=== PATIENT | male | born 1960 | race Caucasian/White ===

== ENCOUNTER 2018-07-17 20:41 | Inpatient (IN) | payer OTHER ==
[~2018-07-17] VITALS: Ht 170.2 cm; Wt 67.8 kg
[2018-07-17 21:10] VITALS: BP 103/76
[2018-07-17 21:15] LABS: BASOPHILS 0.7 % (0.0-2.0); EOSINOPHILS 3.7 % (0.0-3.0); HEMATOCRIT 39.4 % (42.0-52.0); HEMOGLOBIN 12.8 gm/dL (14.0-18.0); MCH 27.4 pg (26.0-34.0); MCHC 32.4 g/dL (28.0-37.0); MCV 84.6 fL (80.0-100.0); MONOCYTES 5.5 % (1.0-8.0); PLATELET COUNT 286 thou/uL (150-400); POLYS 52.1 % (36.0-66.0); RBC 4.66 mil/uL (4.50-6.00); RDW 16.6 % (10.5-14.5); WBC 5.8 thou/uL (4.0-11.0)
[2018-07-17 21:27] LABS: ANION GAP 10 mmol/L (7-16); BUN 7 mg/dL (7-18); CALCIUM 8.5 mg/dL (8.5-10.1); CHLORIDE 105 mmol/L (98-107); CO2 23 mmol/L (21-32); GLUCOSE 106 mg/dL (74-106); POTASSIUM 4.2 mmol/L (3.5-5.1); SODIUM 138 mmol/L (136-145)
[2018-07-17 21:28] LABS: URINE BILIRUBIN NEGATIVE (Negative); URINE BLOOD NEGATIVE (Negative); URINE CLARITY CLEAR; URINE COLOR YELLOW; URINE GLUCOSE-RANDOM* NEGATIVE (Negative); URINE KETONES NEGATIVE (Negative); URINE LEUKOCYTES-REFLEX NEGATIVE (Negative); URINE NITRITE-REFLEX NEGATIVE (Negative); URINE PROTEIN (DIPSTICK) NEGATIVE (Negative); URINE SPECIFIC GRAVITY <= 1.005 (1.005-1.035); URINE UROBILINOGEN 0.2 E.U./dl (0.2-1.0)
[2018-07-17 21:35] LABS: AMP/METHAMP Negative (Negative); BARBITURATES Negative (Negative); BENZODIAZEPINES Negative (Negative); COCAINE Negative (Negative); METHADONE Negative (Negative); OPIATES Negative (Negative); PCP Negative (Negative)
[2018-07-17 21:38] LABS: ALBUMIN 3.3 g/dL (3.4-5.0); MAGNESIUM 1.7 mg/dL (1.8-2.4); SGOT 24 U/L (15-37); SGPT 22 U/L (30-65); TOTAL BILIRUBIN 0.2 mg/dL (<0.1-1.0); TOTAL PROTEIN 7.1 g/dL (6.4-8.2); TROPONIN-I <0.06 ng/mL (<0.06)
[2018-07-17] MEDS ORDERED: LIPITOR80 MG PO (23:02)
[2018-07-17] MEDS ORDERED: BUSPIRONE HCL10 MG PO (23:02)
[2018-07-17] MEDS ORDERED: CAL-GEST200 MG PO (23:03)
[2018-07-17] MEDS ORDERED: B12INJ IM (23:06)
[2018-07-17] MEDS ORDERED: DULERA 100 MCG/13 GM SWISH&SPIT (23:08)
[2018-07-17] MEDS ORDERED: CYMBALTA60 MG PO (23:09)
[2018-07-17] MEDS ORDERED: NEURONTIN 400400 M1 PO (23:09)
[2018-07-17] MEDS ORDERED: LOPRESSOR50 PO (23:09)
[2018-07-17] MEDS ORDERED: OMEPRAZOLE 20 M20 M1 PO (23:10)
[2018-07-17] MEDS ORDERED: REMERON15 MG PO (23:10)
[2018-07-17] MEDS ORDERED: MIRALAX17 GM PO (23:11)
[2018-07-17] MEDS ORDERED: PRAZOSIN 1 MG CA1 M1 PO (23:11)
[2018-07-17] MEDS ORDERED: SPIRIVA INH (23:12)
[2018-07-17] MEDS ORDERED: FLOMAX0.4 MG PO (23:12)
[2018-07-17] MEDS ORDERED: SEROQUEL XR 30300 M1 PO (23:12)
[2018-07-17] MEDS ORDERED: TRAZODONE HCL100 MG PO (23:13)
[2018-07-18] VITALS (7 sets, daily range): BP systolic 121–162; BP diastolic 80–115
[2018-07-18 02:49] LABS: PHOSPHORUS 3.5 mg/dL (2.5-4.9)
[2018-07-18 04:49] LABS: FOLIC ACID 99.1 ng/mL (8.6-58.9)
--- NOTE | 2018-07-18 17:46 | NUR ---
ASSUMED PATIENT CARE AT 0700. A/O X4. CIW X0. DENIES CHEST PAIN. NO SOB. PATIENT HR KEEP AT 140 TO 148/M. BP HIGH. VILLEGAS SEE PATIENT AND AWARE A FIB/ AFLUTTER ON MONITOR. PATIENT IS ASYMPTOMATIC. PUT 1L/NC 02 ON. WILL KEEP MONITOR.
[2018-07-19] VITALS (8 sets, daily range): BP systolic 101–133; BP diastolic 62–91
[2018-07-19 06:40] LABS: HEMATOCRIT 36.4 % (42.0-52.0); HEMOGLOBIN 11.8 gm/dL (14.0-18.0); MCH 27.5 pg (26.0-34.0); MCHC 32.5 g/dL (28.0-37.0); MCV 84.8 fL (80.0-100.0); RBC 4.3 mil/uL (4.50-6.00); RDW 16.9 % (10.5-14.5); WBC 6.8 thou/uL (4.0-11.0)
[2018-07-19 07:14] LABS: ANION GAP 14 mmol/L (7-16); BUN 8 mg/dL (7-18); CHLORIDE 108 mmol/L (98-107); CO2 19 mmol/L (21-32); GLUCOSE 222 mg/dL (74-106); MAGNESIUM 1.6 mg/dL (1.8-2.4); POTASSIUM 3.6 mmol/L (3.5-5.1); SODIUM 141 mmol/L (136-145); TROPONIN-I <0.06 ng/mL (<0.06)
--- NOTE | 2018-07-19 08:08 | NUR ---
PATIENT IS PROGRESSING RAPIDLY IN HIS CARE PLAN. VITAL SIGNS STABLE WITH PATIENT HAVING NO COMPLAINTS OF PAIN OR NAUSEA. PATIENT HAS REMAINED ORIENTED AND ABLE TO CALL APPROPRIATELY FOR REQUESTS. CIWA HAS BEEN MOSTLY ZERO THROUGHOUT SHIFT WITH PATIENT SHOWING NO SIGNS OF WITHDRAWAL. CARDIZEM GTT STARTED DURING SHIFT DUE TO PATIENT EXHIBITING ATRIAL FIB/FLUTTER WITH RVR AND CARDIOLOGY TO BE CONSULTED. PATIENT IS ANXIOUS FOR POTENTIAL DISCHARGE TO FACILITY TODAY. CONTINUE PLAN OF CARE.
--- NOTE | 2018-07-19 08:41 | EKG ---
[address] [place] [address] ELECTROCARDIOGRAM REPORT Name: JEFFERSONFELIPA PANIAGUA GERTRUDIS Room #: 361-P ADM IN M.R.#: [id number] ������������������ Admission: 07/18/18 ������������������ Attend Phys: Kevin Dias MD Discharge: ������������������ Date of : 56 Report #: [id number] ����������������������������������������������������������������� [id number] THIS REPORT FOR: //name// [facility] ED Test Date: 2018-07-17 Test Time: 21:15:21 Pat Name: FELIPA PAULINO Department: Room: 361 Gender: M Rn Patient Care: Rosetta Candelario : 1960 Requested By: Clay Garrido Order Number: [id number] MD: Dwayne Sawyer Measurements Intervals [place] Rate: 137 P: DE: QRS: -60 QRSD: 90 T: -14 QT: 326 QTc: 493 Interpretive Statements Atrial flutter with predominant 2:1 AV block Inferior infarct, recent No previous ECG available for comparison Electronically Signed On 07-19-2018 8:41:29 CDT by Dwayne Sawyer [email or web address] ��������������������������������������������� <ELECTRONICALLY SIGNED> ���������������������������������������� By: Dwayne Sawyer MD ��������������������������������������������� 07/19/18 0841 14 14 Dwayne Sawyer MD /OTILIA
--- NOTE | 2018-07-19 08:51 | EKG ---
[place] [address] [facility] [place] [address] ELECTROCARDIOGRAM REPORT Name: FELIPA PAULINO GERTRUDIS Room #: 361- ADM IN M.R.#: [id number] ������������������ Admission: 07/18/18 ������������������ Attend Phys: Kevin Dias MD Discharge: ������������������ Date of : 56 Report #: [id number] ����������������������������������������������������������������� [id number] THIS REPORT FOR: //name// [facility] Test Date: 2018-07-19 Test Time: 07:39:37 Pat Name: FELIPA PAULINO Department: Room: 361 Gender: M Fryer Operator: Ethel NEVAREZ : 1960 Requested By: Kevin Dias Order Number: [id number] MD: Alexis Larsen Measurements Intervals [place] Rate: 73 P: [place]: QRS: -29 QRSD: 110 T: -69 QT: 454 QTc: 501 Interpretive Statements Atrial flutter with predominant 4:1 AV block Borderline left axis deviation Prolonged QT interval No previous ECG available for comparison Electronically Signed On 07-19-2018 8:51:17 CDT by Alexis Larsen [email or web address] ��������������������������������������������� <ELECTRONICALLY SIGNED> ���������������������������������������� By: Alexis Larsen MD, [facility] ��������������������������������������������� 07/19/18 0851 8 8 Alexis Larsen MD, [facility] /EPI
--- NOTE | 2018-07-19 12:03 | 2DMMODE ---
[facility] [address] [place] [address] 2 D/M-MODE ECHOCARDIOGRAM Name: FELIPA PAULINO GERTRUDIS Room #: 361-P ADM IN M.R.#: [id number] ������������� Admission: 07/18/18 ������������� Attend Phys: Kevin Dias MD Discharge: ��� ������������� ��� Date of : 56 Date of Service: 07/19/18 1203 �� Report #: [id number] �������� ��������������������������������������������[id number] THIS REPORT FOR: //name// APPROVED REPORT Study performed: 07/19/2018 11:26:18 EXAM: Comprehensive 2D, Doppler, and color-flow Echocardiogram Patient Location: Echo lab Room #: [facility] Status: routine BSA: 1.78 HR: 70 bpm BP: 125/78 mmHg Rhythm: NSR Other Information Study Quality: Adequate Indications COPD Atrial Fibrillation Hypertension/HDD 2D Dimensions RVDd: 27.91 mm IVSd: 11.31 (7-11mm) LVOT Diam: 20.75 (18-24mm) LVDd: 42.81 mm PWd: 11.39 (7-11mm) Ascending Ao: 32.39 (22-36mm) LVDs: 29.19 (25-40mm) Aortic Root: 33.94 mm IVC: 20.00 mm Volumes Left Atrial Volume (Systole) Single Plane 4CH: 110.54 mL Single Plane 2CH: 59.87 mL LA ESV Index: 52.00 mL/m2 Aortic Valve AoV Peak Elton.: 1.18 m/s AO Peak Gr.: 5.52 mmHg LVOT Max P.43 mmHg LVOT Max V: 0.93 m/s GRAHAM Vmax: 2.67 cm2 Mitral Valve E/A Ratio: 2.6 [facility] [address] [place] [address] 2 D/M-MODE ECHOCARDIOGRAM Name: JEFFERSONFELIPA GERTRUDIS Room #: 361-[facility]#: [id number] ������������� Admission: 07/18/18 ������������� Attend Phys: Kevin Dias MD Discharge: ��� ������������� ��� Date of : 56 Date of Service: 07/19/18 1203 �� Report #: [id number] �������� ��������������������������������������������[id number] MV Decel. Time: 134.61 ms MV E Max Elton.: 1.05 m/s MV A Elton.: 0.41 m/s MV PHT: 39.04 ms IVRT: 124.57 ms Pulmonary Valve PV Peak Elton.: 0.68 m/s PV Peak Gr.: 1.87 mmHg Pulmonary Vein P Vein S: 0.20 m/s P Vein A: 0.28 m/s P Vein D: 0.82 m/s P Vein A Dur.: 87.7 msec P Vein S/D Ratio: 0.24 Tricuspid Valve TR Peak Elton.: 2.18 m/s TR Peak Gr.: 19.02 mmHg PA Pressure: 29.00 mmHg Left Ventricle The left ventricle is normal size. There is normal left ventricular wall thickness. The left ventricular systolic function is normal. The left ventricular ejection fraction is within the normal range. LVEF is 60-65%. The diastolic function is abnormal. Right Ventricle The right ventricle is normal size. The right ventricular systolic function is normal. Atria Left atrium is dilated. Right atrium is dilated. Aortic Valve The aortic valve is normal in structure. No aortic regurgitation is present. There is no aortic valvular stenosis. Mitral Valve The mitral valve is normal in structure. Mild mitral regurgitation. Tricuspid Valve The tricuspid valve is normal in structure. There is mild tricuspid regurgitation. Estimated PAP 29 mmHg. There is no pulmonary hypertension. Pulmonic Valve [facility] [address] [place] [address] 2 D/M-MODE ECHOCARDIOGRAM Name: FELIPA PAULINO GERTRUDIS Room #: 361-P [facility] IN M.R.#: [id number] ������������� Admission: 07/18/18 ������������� Attend Phys: Kevin Dias MD Discharge: ��� ������������� ��� Date of : 56 Date of Service: 07/19/18 1203 �� Report #: [id number] �������� ��������������������������������������������[id number] The pulmonary valve is normal in structure. Trace pulmonic regurgitation. Great Vessels The aortic root is normal in size. IVC is dilated and collapses <50% with inspiration. Pericardium There is no pericardial effusion. <Conclusion> The left ventricle is normal size. The left ventricular systolic function is normal. The left ventricular ejection fraction is within the normal range. LVEF is 60-65%. The diastolic function is abnormal. Left atrium is dilated. Right atrium is dilated. The aortic valve is normal in structure. Mild mitral regurgitation. There is mild tricuspid regurgitation. Estimated PAP 29 mmHg. There is no pulmonary hypertension. The aortic root is normal in size. There is no pericardial effusion. ��������������������������������������������� <ELECTRONICALLY SIGNED> ���������������������������������������� By: Randall Pradhan MD, FACC ��������������������������������������������� 07/19/18 1203 120 120 Randall Pradhan MD, FACC /INF
--- NOTE | 2018-07-19 15:34 | NUR ---
Assumed care of Pt at 0700. rate improved s/p cardizem gtt. transition to po cardizem per cardiology. aflutter on telemetry, rate controlled. stress test done in [facility] this AM - results positive for ischemia. pt became anxious and agitated after discussing findings because he wants to go home. more at ease now. no other remarkable changes to report at this time. will cont to monitor.
--- NOTE | 2018-07-19 16:13 | NUR ---
ASSESSMENT: CM REVIEWED CHART AND MET WITH PATIENT AT THE BEDSIDE. PT WAS ADMITTED FOR TACHYCARDIA/AMS/ALCOHOL INTOXICATION. PT IS FROM [facility]. PT REPORTS HE HAS NO STEPS HE HAS TO USE OVER AT FACILITY. PT REPORTS HE AMBULATES USING A CANE. PT PLANS ON RETURNING TO [facility] ONCE MEDICALLY STABLE. CM CONTACTED LIASON FROM [facility] WHO STATES THEY CAN ACCPET HIM BACK ONCE MEDICALLY STABLE. CM SPOKE WITH ATTENDING AND PT IS POSSIBLE DISCHAGRE IN THE NEXT 1-2 DAYS.
[2018-07-20] VITALS (16 sets, daily range): BP systolic 105–155; BP diastolic 60–103
--- NOTE | 2018-07-20 04:09 | NUR ---
PATIENT IS PROGRESSING IN HIS CARE PLAN. VITAL SIGNS STABLE WITH PATIENT HAVING NO COMPLAINTS OF PAIN OR NAUSEA. FULLY ORIENTED, PATIENT IS ABLE TO CALL APPROPRIATELY FOR REQUESTS. PATIENT DID EXHIBIT MORE ANXIETY THIS SHIFT THAN PREVIOUS. ATRIAL FLUTTER RATE CONTROLLED. PATIENT WAS ABLE TO AMBULATE WITH ASSISTANCE INCIDENT FREE. HE IS ANXIOUS FOR POSSIBLE DISCHARGE SOON. CONTINUE PLAN OF CARE.
[2018-07-20 05:28] LABS: HEMOGLOBIN 11.2 gm/dL (14.0-18.0); MCH 27.1 pg (26.0-34.0); MCV 84.7 fL (80.0-100.0); RBC 4.13 mil/uL (4.50-6.00); RDW 16.6 % (10.5-14.5); WBC 12.6 thou/uL (4.0-11.0)
[2018-07-20 05:49] LABS: CALCIUM 8.4 mg/dL (8.5-10.1); CREATININE 0.9 mg/dL (0.7-1.3); MAGNESIUM 1.8 mg/dL (1.8-2.4); PHOSPHORUS 2.7 mg/dL (2.5-4.9); POTASSIUM 4.1 mmol/L (3.5-5.1)
--- NOTE | 2018-07-20 14:46 | NUR ---
ON-GOING ASSESSMENT: PATIENT HAD CARDIAC CATH TODAY. CM UPDATED LIASON FROM [facility]. CM FAXED UPDATED INFORMATION TO THEM. PLANS TO RETURN TO [facility] RCF ONCE MEDICALLY STABLE.
--- NOTE | 2018-07-20 16:12 | NUR ---
PT LEFT UNIT FOR CARDIAC CATH AT 1610.
--- NOTE | 2018-07-20 16:47 | NUR ---
ASSUMED CARE OF PT AT 0700. PT HAS BEEN IN AFIB WITH RATES RANGING FROM THE 70s UP TO THE 150s. DR. CARL VISITED WITH PT THIS MORNING AND REPORTED THAT PT'S STRESS TEST CAME BACK POSITIVE FOR ISCHEMIA. PT SCHEDULED FOR HEART CATH WITH POSSIBLE ANGIOPLASTY AND STENT. CIWA SCORES OF 2 TODAY. PT HAS HAD INCREASING ANXIETY TODAY LIKELY RELATED TO ANTICIPATED CATH PROCEDURE AND INCREASINGLY DESIRE TO DC HOME. PT HAS DENIED PAIN BUT EXHIBITS SOME SOB, DWIGHT WITH EXERTION. WHEEZES BILATERALLY. PT REMAINS ON RA. PT IS MAKING PROGRESS TOWARD POC AND DC GOALS. WILL CONTINUE TO MONITOR AND ASSESS.
--- NOTE | 2018-07-20 17:59 | CATHLAB ---
[facility] [address] [place] [address] INVASIVE PROCEDURE REPORT Name: FELIPA PAULINO Room #: 361-P ADM IN .R.#: [id number] ������������� Admission: 07/18/18 ������������� Attend Phys: Kevin Dias MD Discharge: ��� ������������� ��� Date of : 56 Date of Service: 07/20/18 1758 �� Report #: [id number] �������� ��������������������������������������������[id number] THIS REPORT FOR: //name// APPROVED REPORT Study performed: 07/20/2018 16:19:42 Patient Details Patient Status: In-Patient Room #: The patient is a 58 year-old male Event Personnel Randall Pradhan Vault Keeper, Lizzie Molina RN, Carito Solorio Monitor, Socorro Lei DITCHER Scrub Procedures Performed Art Access - R femoral artery* 13445 Initial Mod Sed Same Phys/QHP Gr5y 670361 68534 Mod Sed Same Phys/QHP Ea [id number] Left Heart Cath w/or w/o Coronaries 8852017 [facility] Aortogram Abdominal Peripheral Angio 602019 Hemostasis w/ Mynx Indication Chest pain Procedure Narrative The patient was brought urgently to the Cardiac Catheterization Laboratory and was prepped and draped in a sterile manner. The Right Groin^ was infiltrated with 1% Lidocaine subcutaneous anesthesia. A PINNACLE 6FR Sheath #[id number] sheath was inserted into the RFA^. Coronary angiography was performed using coronary diagnostic catheters. The right coronary system was accessed and visualized with a JR 4 catheter. The left coronary system was accessed and visualized with a AL 1 catheter. The left ventricle was accessed and visualized with a Pigtail catheter. Left ventriculogram was performed in WHITE projection. An aortogram of the abdominal aorta was performed. Pre-demployment femoral angiogram was performed . Closure device was deployed with a 6 Fr Mynx. The patient tolerated the procedure well and there were no complications associated with the procedure. There was no hematoma. Intraoperative Conscious Sedation Sedation start time: 17:01 Case end Time: 17:34 Fentanyl 100 mcg Versed [address] [address] INVASIVE PROCEDURE REPORT Name: FELIPA PAULINO Room #: 361-P [facility] IN ..#: [id number] ������������� Admission: 07/18/18 ������������� Attend Phys: Kevin Dias MD Discharge: ��� ������������� ��� Date of : 56 Date of Service: 07/20/18 1758 �� Report #: [id number] �������� ��������������������������������������������[id number] Fluoro Time: 10.55 minutes Dose: DAP 9996.00 cGycm2 1191 mGy Contrast Type and Amount: Omnipaque 200 ml Hemodynamics The aortic pressure is 109/72 mmHg with a mean of 104 mmHg. The left ventricular pressure is 121/17 mmHg with a mean of mmHg. The left ventricular end diastolic pressure is 34 mmHg. Conclusion #1 normal left ventricular size and systolic function EF 55-60% #2 abdominal aortogram revealing no evidence of aneurysm renal arteries and iliac system appear mildly diseased #3 left main moderate size giving rise to LAD and circumflex #4 LAD with mild proximal disease and calcification. 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 Significant calcification noted throughout this. Of note an anomalous takeoff required and a L1 catheter Recommendations and plan continue aggressive risk factor modification. No indication for coronary intervention. Aggressive statin therapy hypertension control tobacco alcohol cessation would be of some benefit. ��������������������������������������������� <ELECTRONICALLY SIGNED> ���������������������������������������� By: Randall Pradhan MD, FACC ��������������������������������������������� 07/20/181757 57 57 Randall Pradhan MD, FACC /INF
--- NOTE | 2018-07-20 18:01 | NUR ---
Patient returned from cardiac cath. No intervention at this time. Right groin site clean, dry, intact; soft, no hematoma noted. Patient to remain bedrest until 2039. May elevate HOB up to 30 degrees, no more. Stable at this time. Continue to monitor.
[2018-07-21] VITALS (7 sets, daily range): BP systolic 136–1152; BP diastolic 69–90
--- NOTE | 2018-07-21 03:50 | NUR ---
PATIENT IS ALERT AND ORIENTED. CIWA IS (-) scoring a 2. patient is on 2L NC PER COMFORT POST CATH. PATIENT CATH INCISION IS RT GROIN CLOSED WITH MINX NO HEMOTOMA. PATIENT IS A FIB A FLUTTER ON TELE RATE IS CONTROLLED. PATIENTS LBM WAS THE 3RD. PATIENTS PAIN IS TREATED WITH MEDICATION. PATIENT IS RESTING COMFORTABLY IN BED. WCM. PATIENT IS PROGRESSING TO GOALS
[2018-07-21 09:53] LABS: CALCIUM 8.4 mg/dL (8.5-10.1); CREATININE 0.9 mg/dL (0.7-1.3); POTASSIUM 3.3 mmol/L (3.5-5.1)
[2018-07-21] MEDS ORDERED: PRENATAL PO (12:53)
[2018-07-21] MEDS ORDERED: CEFUROXIME500 MG PO (12:53)
[2018-07-21] MEDS ORDERED: ASPIRIN325 PO (12:53)
[2018-07-21] MEDS ORDERED: CARDIZEM CD 30300 M1 PO (12:53)
[2018-07-21] MEDS ORDERED: AZITHROMYCIN 2250 MG PO (12:53)
[2018-07-21] MEDS ORDERED: PREDNISONE 20 M20 MG PO (12:53)
--- NOTE | 2018-07-21 15:05 | NUR ---
ON-GOING ASSESSMENT: PT HAS ORDERS TO DISCHARGE TODAY. PT IS GOING BACK TO HIS RCF APT AT [facility]. JOSELINE SPOKE WITH DONOVAN AT [facility] JANENE AND ALSO SPOKE WITH GOVERNMENT GAUGER [employer] FOR THE RCF. JOSELINE ALSO SPOKE WITH DANNY AT THE RCF AND ALL ARE ON BOARD WITH PATIENT RETURNING TODAY. F DOES NOT NEED A CHART COPY OR REPORT THEY JUST NEED THE DISCHARGE ORDERS. CM FAXED THESE TO THE E FAX [phone] AND CONFIRMED THEY RECEIVED IT. [employer] HAS ARRANGED TRANSPORTATION AND STATES IT WILL BE HERE AROUND [phone]. [employer] CAN BE REACHED AT [phone].
--- NOTE | 2018-07-21 15:37 | NUR ---
ASSUMED PATIENT CARE AT 0715. A&OX4. AFIB RVR IN THE MORNING. CARDIAC MED DOSES INCREASED AND LOPRESSOR IV WELL IV DIG GIVEN. AFTER MEDICATION HEART RATE CONTROLLED IN THE 70'S. CARDIOLOGY AND HOSPITALIST CLEARED PATIENT FOR DISCHARGE IN THE AFTERNOON. PATIENT GOING BACK TO APARTMENT AT [facility].
== END 2018-07-21 17:01 | disposition home health service (06) | DRG 287 ==
LOC: ER 20:41 → EROBS 07-18 00:38 → 3W 07-18 00:38
PROVIDERS: Emergency Medicine; Hospitalist; Nurse Practitioner Adult Health; ADMIT Internal Medicine
PROC: 4A023N7 Measurement of Cardiac Sampling and Pressure, Left Heart, Percutaneous Approach (ICD-10-PCS; principal; 2018-07-20)
PROC: B2151ZZ Fluoroscopy of Left Heart using Low Osmolar Contrast (ICD-10-PCS; principal; 2018-07-20)
PROC: B2111ZZ Fluoroscopy of Multiple Coronary Arteries using Low Osmolar Contrast (ICD-10-PCS; principal; 2018-07-20)
PROC: B41F1ZZ Fluoroscopy of Right Lower Extremity Arteries using Low Osmolar Contrast (ICD-10-PCS; principal; 2018-07-20)
PROC: B4101ZZ Fluoroscopy of Abdominal Aorta using Low Osmolar Contrast (ICD-10-PCS; principal; 2018-07-20)
DX: I48.92 Unspecified atrial flutter (principal); J44.1 Chronic obstructive pulmonary disease with (acute) exacerbation; E83.42 Hypomagnesemia; N40.0 Benign prostatic hyperplasia without lower urinary tract symptoms; F20.9 Schizophrenia, unspecified; I10 Essential (primary) hypertension; I25.10 Atherosclerotic heart disease of native coronary artery without angina pectoris; F10.129 Alcohol abuse with intoxication, unspecified; I95.9 Hypotension, unspecified; E78.5 Hyperlipidemia, unspecified; F17.210 Nicotine dependence, cigarettes, uncomplicated; K21.9 Gastro-esophageal reflux disease without esophagitis; Z71.6 Tobacco abuse counseling; Z71.41 Alcohol abuse counseling and surveillance of alcoholic; Z79.899 Other long term (current) drug therapy
CPT/HCPCS: 10879